=== PATIENT | female | born 1980 | race Two or more races ===

== ENCOUNTER 2020-07-14 20:30 | Emergency (ER) | payer OTHER ==
[2020-07-14 20:57] VITALS: BP 139/83; PULSE 77; TEMP 97.8; BMI 30.7
[2020-07-14] MEDS ORDERED: LIDOCAINE 5% TOPICAL PATCH TP ONE (21:05)
[2020-07-14] MEDS ORDERED: IBUPROFEN 600 MG TABLET (FP) PO ONE ×2 (21:05→21:11)
[2020-07-14] MEDS ORDERED: CYCLOBENZAPRINE HCL 10 MG TABLET (FP) PO ONE (21:06)
[2020-07-14] MEDS ORDERED: CYCLOBENZAPRINE HCL 10 MG TABLET (FP) ONE (21:11)
[2020-07-14] MEDS ORDERED: LIDOCAINE 5% TOPICAL PATCH ONE (21:11)
[2020-07-14] MEDS ORDERED: LIDOCAINE PATCH REMOVAL MC SCH (22:00)
== END 2020-07-14 21:44 | disposition home or self-care (01) ==
LOC: JERFT 20:30
DX: M54.32 Sciatica, left side (principal)
CPT/HCPCS: 72100-TC-FY; 99283-25

== ENCOUNTER 2021-10-05 08:22 | Emergency (ER) | payer OTHER ==
[2021-10-05] MEDS: ALBUTEROL SO4 2.5/IPRATROPIUM 0.5 INH SOL 3 ML VIAL.NEB. NEB SCH ×2 (09:02→09:15)
[2021-10-05 09:16] VITALS: BMI 46.3
[2021-10-05] MEDS ORDERED: ALBUTEROL SO4 2.5/IPRATROPIUM 0.5 INH SOL 3 ML VIAL.NEB. NEB ONE ×2 (10:24→10:34)
[2021-10-05 11:35] VITALS: BP 145/86; PULSE 89; TEMP 97.6
== END 2021-10-05 11:25 | disposition home or self-care (01) ==
LOC: JER 08:22
PROC: 3E0F7GC Introduction of Other Therapeutic Substance into Respiratory Tract, Via Natural or Artificial Opening (ICD-10-PCS; principal; 2021-10-05)
DX: J45.909 Unspecified asthma, uncomplicated (principal)
CPT/HCPCS: 71045-TC-FY; 94640; 99285-25

== ENCOUNTER 2021-11-21 06:52 | Day surgery (SDC) | payer OTHER ==
[2021-11-17 16:27] VITALS: BMI 45.8
[2021-11-21] MEDS ORDERED: BUPIVACAINE LIPOSOME/PF (EXPAREL) 266 MG/20 ML VIAL ONE (08:41)
[2021-11-21] MEDS ORDERED: MIDAZOLAM HCL 2 MG/2 ML SINGLE DOSE VIAL ONE ×2 (08:41→09:07)
[2021-11-21] MEDS ORDERED: BUPIVACAINE HCL 50 ML ONE ×2 (08:41→09:09)
[2021-11-21] MEDS ORDERED: SODIUM CHLORIDE 0.9% P/F 10 ML VIAL IJ ONE (08:42)
[2021-11-21] MEDS ORDERED: PROPOFOL 20 ML ONE ×3 (09:07)
[2021-11-21] MEDS ORDERED: TRANEXAMIC ACID 1000 MG/10 ML VIAL ONE (09:47)
[2021-11-21] MEDS ORDERED: KETOROLAC TROMETHAMINE 30 MG/1 ML VIAL ONE (09:52)
[2021-11-21] MEDS ORDERED: DEXAMETHASONE SOD PHOSPHATE 4 MG/1 ML VIAL ONE (09:52)
[2021-11-21] MEDS ORDERED: ONDANSETRON 4 MG/2 ML VIAL ONE (09:52)
[2021-11-21] MEDS ORDERED: ceFAZolin SODIUM 1 GM VIAL ONE (09:52)
[2021-11-21] MEDS ORDERED: ONDANSETRON 4 MG/2 ML VIAL IVPUSH PRN (12:12)
[2021-11-21] MEDS ORDERED: oxyCODONE HCL 5 MG TABLET PO PRN ×2 (12:12)
[2021-11-21 14:36] VITALS: PULSE 74; TEMP 98
[2021-11-21 17:14] VITALS: BP 134/71
== END 2021-11-21 17:40 | disposition home or self-care (01) ==
LOC: FASU 06:52
PROVIDERS: ATTEND Orthopaedic Surgery Sports Medicine
PROC: 0MRP47Z Replacement of Left Knee Bursa and Ligament with Autologous Tissue Substitute, Percutaneous Endoscopic Approach (ICD-10-PCS; principal; 2021-11-21 10:21)
PROC: 0SBD4ZZ Excision of Left Knee Joint, Percutaneous Endoscopic Approach (ICD-10-PCS; 2021-11-21 10:21)
DX: S83.512A Sprain of anterior cruciate ligament of left knee, initial encounter (principal); S83.212A Bucket-handle tear of medial meniscus, current injury, left knee, initial encounter; X58.XXXA Exposure to other specified factors, initial encounter; Y93.9 Activity, unspecified; Y92.9 Unspecified place or not applicable
CPT/HCPCS: 29881; 29888; C1713; 84703; 94760

== ENCOUNTER 2022-12-25 16:06 | Emergency (ER) | payer OTHER ==
[2022-12-25] MEDS ORDERED: ALBUTEROL SO4 2.5/IPRATROPIUM 0.5 INH SOL 3 ML VIAL.NEB. NEB ONE ×3 (16:33→17:54)
[2022-12-25 16:37] VITALS: TEMP 98.8; BMI 46.3
[2022-12-25 16:39] VITALS: BP 129/79; PULSE 96; RESP 20
[2022-12-25] MEDS ORDERED: DEXAMETHASONE SOD PHOSPHATE 4 MG/1 ML VIAL IVPUSH ONE (16:46)
[2022-12-25] MEDS ORDERED: MAG HYDROX/AL HYDROX/SIMETH 30 ML UNIT-DOSE CUP PO ONE (16:47)
[2022-12-25] MEDS ORDERED: FAMOTIDINE 20 MG/50 ML IVPB 20 MG/50 ML MG IVPB ONE (16:47)
[2022-12-25] MEDS: ALBUTEROL SO4 2.5/IPRATROPIUM 0.5 INH SOL 3 ML VIAL.NEB. NEB SCH (16:54)
[2022-12-25] MEDS ORDERED: MAG HYDROX/AL HYDROX/SIMETH 30 ML UNIT-DOSE CUP ONE (17:00)
[2022-12-25] MEDS ORDERED: DEXAMETHASONE SOD PHOSPHATE 10 MG/1 ML VIAL ONE (17:00)
[2022-12-25] MEDS ORDERED: FAMOTIDINE 10 MG/ML VIAL IVPB ONE (17:01)
[2022-12-25 17:42] LABS: VENOUS O2 SATURATION 41.3 % (70-80); VENOUS PCO2 52.5 mmHg (38-52); VENOUS PH 7.327 (7.310-7.410)
[2022-12-25 17:43] LABS: BASO % 0.5 % (0-2.0); EOS % 2.9 % (0-4.5); LYMPH % 17.9 % (8-40); MCH 26.6 pg (25.7-33.7); MCHC 32.6 g/dl (32.0-36.0); MEAN CELL VOLUME 81.6 fl (80-96); MEAN PLT VOLUME 9.7 fl (7.5-11.1); MONO % 5.2 % (3.8-10.2); NEUT % 73.5 % (42.8-82.8); PLATELET COUNT 253 10^3/uL (134-434); RDW 15.5 % (11.6-15.6); WHITE BLOOD COUNT 10.5 K/mm3 (4.0-10.0)
[2022-12-25 17:50] LABS: INR 1.1 (0.83-1.09); PROTHROMBIN TIME (PATIENT) 12.8 SEC (9.7-13.0)
[2022-12-25 17:53] LABS: ACTIVATED PTT 32.3 SECONDS (25.2-36.5)
[2022-12-25 18:04] LABS: CALCIUM 9.3 mg/dL (8.5-10.1)
[2022-12-25 18:05] LABS: ALBUMIN 3.8 g/dl (3.4-5.0); BLOOD UREA NITROGEN 8.3 mg/dL (7-18)
[2022-12-25 18:09] LABS: BILIRUBIN,TOTAL 0.5 mg/dL (0.2-1)
[2022-12-25 18:10] LABS: TOT PROT 7.7 g/dl (6.4-8.2)
[2022-12-25] MEDS ORDERED: ALBUTEROL SO4 HFA INHALER IH ONE ×2 (20:50→20:51)
== END 2022-12-25 21:32 | disposition home or self-care (01) ==
LOC: JER 16:06
PROC: 3E033GC Introduction of Other Therapeutic Substance into Peripheral Vein, Percutaneous Approach (ICD-10-PCS; principal; 2022-12-25)
PROC: 3E0F7GC Introduction of Other Therapeutic Substance into Respiratory Tract, Via Natural or Artificial Opening (ICD-10-PCS; 2022-12-25)
DX: J45.901 Unspecified asthma with (acute) exacerbation (principal); R10.13 Epigastric pain
CPT/HCPCS: 0241U-QW; 36415; 71046-TC-FY; 76705-TC; 80053; 82803; 83690; 84484; 85025; 85610; 85730; 93005; 93010; 99285-25